=== PATIENT | female | born 1990 | race African-American/Black ===

== ENCOUNTER 2019-07-25 21:16 | Emergency (ER) | payer OTHER ==
[~2019-07-25] VITALS: Ht 172.7 cm; Wt 103.4 kg
--- NOTE | 2019-07-25 21:25 | NUR ---
ED Nurse Note: PT WALKED IN TO ED C/O HEMATEMESIS X3DAYS ACCOMPANIED BY ABD PAIN 10/10. PT STATEKS 8 WK , DENIES VAGINAL BLEEDING. PT STATES 2 PARA 0. VSS, NAD, AAOX4, AMBULATORY, ERMD AT BEDSIDE.
--- NOTE | 2019-07-25 21:30 | NUR ---
ED Nurse Note: BLOOD COLLECTED AND SENT TO LAB. UNABLE TO COLLECT URINE AT THIS TIME. WILL ATTEMPT AGAIN LATER
[2019-07-25 21:52] VITALS: BP 141/93
--- NOTE | 2019-07-25 21:52 | Emergency Room Report ---
History of Present Illness General Chief Complaint: Nausea, Vomiting, and Diarrhea Source: Patient (Gerard Olsen M.D.) Present Illness HPI Disclaimer: Please note that this report is being documented using [employer] technology. This can lead to erroneous entry secondary to incorrect interpretation by the dictating instrument. HPI: 29-year-old female approximately 8 weeks presents with nausea and vomiting. She states she has had nausea and vomiting for the past week, and over the past 3 days has had some blood streaks in her emesis. Unable to tolerate p.o. She denies any fevers. Does report diffuse abdominal pain. Also reports diarrhea. No urinary complaints. She denies a history of hyperemesis gravidarum. Pain is currently 10 out of 10 throughout her abdomen worse with vomiting. PMH: Patient denies any past medical history PSH: Reviewed Social Hx: She denies smoking drinking or illicit drug use (Gerard Olsen M.D.) Allergies: Coded Allergies: No Known Allergies (Unverified , 07/25/19) COVID-19 Screening Contact w/high risk pt: No Recent Travel to affected area: No Experienced COVID-19 symptoms?: No COVID-19 Testing performed DIRECTOR OF MEDICARE: No (Gerard Olsen M.D.) Patient History Now: Yes Reviewed Nursing Documentation: PMH: Agreed; PSxH: Agreed (Gerard Olsen M.D.) Nursing Documentation-PMH Past Medical History: No Stated History (Gerard Olsen M.D.) Review of Systems All Other Systems: negative except mentioned in HPI (Gerard Olsen M.D.) Physical Exam Vital Signs Date Time Temp Pulse Resp B/P (MAP) Pulse Ox O2 Delivery O2 Flow Rate FiO2 07/25/19 21:20 98.6 119 20 121/85 (97) 100 Room Air Sp02 EP Interpretation: reviewed, normal General Appearance: other - Patient appears uncomfortable, vomiting Head: normocephalic, atraumatic Eyes: bilateral eye PERRL, bilateral eye EOMI ENT: hearing grossly normal, moist mucus membranes Neck: full range of motion, supple Respiratory: lungs clear, normal breath sounds, no rhonchi, no respiratory distress, no retraction, no wheezing Cardiovascular #1: normal peripheral pulses, no murmur, tachycardia Gastrointestinal: soft, non-distended, no guarding, other - Epigastric tenderness noted Neurologic: alert, oriented x3, no focal defects Skin: normal color, warm/dry (Gerard Olsen M.D.) Medical Decision Making Diagnostic Impression: Primary Impression: Vomiting affecting ER Course MDM: Differential diagnosis included but not limited to hyperemesis gravidarum, gastroenteritis, gastritis, Jody-Broussard tear, dehydration Clinical course-IV cardiac monitoring pulse oximetry antiemetics given. IV fluids given, laboratory studies were sent ultrasound ordered. Plan-patient signed out to oncoming physician to follow-up on laboratory studies , ultrasound result and final disposition. (Gerard Olsen M.D.) ER Course Patient signed out to me from previous provider pending labs and imaging results. Briefly, this a 29-year-old female at 8 weeks gestation presenting for intractable vomiting. Labs have returned within normal limits aside from slight hypokalemia which was repleted with IV and oral potassium. Patient received IV fluids and antiemetics. Ultrasound of the abdomen as well as a pelvic ultrasound was performed showing no acute findings. Single intrauterine without other significant findings. Patient symptoms are now controlled. Will discharge with Zofran and follow-up with [employer] and PMD soon as possible. Discussed reasons to return to the emergency department. She understands and agrees with this treatment plan. Laboratory Tests Test 07/25/19 21:40 07/26/19 00:23 White Blood Count 11.8 K/UL (4.8-10.8) H Red Blood Count 4.88 M/UL (4.20-5.40) Hemoglobin 13.7 G/DL (12.0-16.0) Hematocrit 43.2 % (37.0-47.0) Mean Corpuscular Volume 89 FL (80-99) Mean Corpuscular Hemoglobin 28.1 PG (27.0-31.0) Mean Corpuscular Hemoglobin Concent 31.7 G/DL (32.0-36.0) L Red Cell Distribution Width 12.8 % (11.6-14.8) Platelet Count 406 K/UL (150-450) Mean Platelet Volume 5.8 FL (6.5-10.1) L Neutrophils (%) (Auto) 74.0 % (45.0-75.0) Lymphocytes (%) (Auto) 19.4 % (20.0-45.0) L Monocytes (%) (Auto) 5.4 % (1.0-10.0) Eosinophils (%) (Auto) 0.1 % (0.0-3.0) Basophils (%) (Auto) 1.1 % (0.0-2.0) Prothrombin Time 11.5 SEC (9.30-11.50) Prothrombin Time INR 1.0 (0.9-1.1) Activated Partial Thromboplast Time 25 SEC (23-33) Sodium Level 138 MMOL/L (136-145) Potassium Level 3.1 MMOL/L (3.5-5.1) L Chloride Level 100 MMOL/L (98-107) Carbon Dioxide Level 22 MMOL/L (21-32) Anion Gap 16 mmol/L (5-15) H Blood Urea Nitrogen 12 mg/dL (7-18) Creatinine 1.1 MG/DL (0.55-1.30) Estimated Glomerular Filtration Rate > 60 mL/min (>60) Glucose Level 124 MG/DL (74-106) H Calcium Level 9.8 MG/DL (8.5-10.1) Total Bilirubin 0.9 MG/DL (0.2-1.0) Aspartate Amino Transferase (AST) 19 U/L (15-37) Alanine Aminotransferase (ALT) 24 U/L (12-78) Alkaline Phosphatase 63 U/L (46-116) Total Protein 8.8 G/DL (6.4-8.2) H Albumin 4.3 G/DL (3.4-5.0) Globulin 4.5 g/dL Albumin/Globulin Ratio 1.0 (1.0-2.7) Lipase 74 U/L (73-393) Human Chorionic Gonadotropin, Quant 137636 mIU/mL (1-6) H Urine Color Yellow Urine Appearance Slightly cloudy Urine pH 6 (4.5-8.0) Urine Specific [place] 1.025 (1.005-1.035) Urine Protein 3+ (NEGATIVE) H Urine Glucose (UA) Negative (NEGATIVE) Urine Ketones 4+ (NEGATIVE) H Urine Blood 4+ (NEGATIVE) H Urine Nitrite Negative (NEGATIVE) Urine Bilirubin Negative (NEGATIVE) Urine Urobilinogen 1 MG/DL (0.0-1.0) H Urine Leukocyte Esterase 1+ (NEGATIVE) H Urine RBC 10-15 /HPF (0 - 2) H Urine WBC 2-4 /HPF (0 - 2) Urine Squamous Epithelial Cells Moderate /LPF (NONE/OCC) H Urine Bacteria Few /HPF (NONE) Urine Mucus Few /LPF (NONE/OCC) H (Jak Beltrán MD) CT/MRI/US Diagnostic Results CT/MRI/US Diagnostic Results : Impression Final Report EXAM: US First Trimester , Transabdominal and Transvaginal CLINICAL HISTORY: PAIN TECHNIQUE: Real-time transabdominal and transvaginal obstetrical ultrasound of the maternal pelvis and a first trimester with image documentation. Transvaginal imaging was used for better evaluation of the fetus and adnexa. COMPARISON: No relevant prior studies available. FINDINGS: Gestation: Single live IUP approximately 8 weeks 5 days. heart rate 178 bpm. [place]-rump length 2.1 cm. Placenta/amniotic fluid: Cannot be adequately evaluated due to the early gestational age. Uterus/cervix: Unremarkable. No myometrial mass. Ovaries: Unremarkable. No mass. Free fluid: No free fluid. IMPRESSION: Single live IUP approximately 8 weeks 5 days. Radiologist: Edgar Chase M.D. Electronically Signed: 07/26/19 00:53 Study ready at 00:22 and initial results transmitted at 00:53 Final Report EXAM: US Abdomen Complete CLINICAL HISTORY: PAIN TECHNIQUE: Real-time ultrasound of the abdomen with image documentation. COMPARISON: No relevant prior studies available. FINDINGS: Liver: Unremarkable. Gallbladder: No cholelithiasis or evidence of acute cholecystitis. Common bile duct: CBD 3 mm. Pancreas: Unremarkable as visualized. Kidneys: No hydronephrosis. Spleen: Spleen not visualized. Aorta: Unremarkable as visualized. Inferior vena cava: Unremarkable as visualized. IMPRESSION: No cholelithiasis or evidence of acute cholecystitis. Radiologist: Edgar Chase M.D. Electronically Signed: 07/26/19 00:55 Study ready at 00:38 and initial results transmitted at 00:55 (Jak Beltrán MD) Last Vital Signs Date Time Temp Pulse Resp B/P (MAP) Pulse Ox O2 Delivery O2 Flow Rate FiO2 07/25/19 21:20 98.6 119 20 121/85 (97) 100 Room Air (Gerard Olsen M.D.) Disposition: HOME, SELF-CARE Condition: Stable Scripts Ondansetron Odt* (ZOFRAN ODT*) 4 Mg Tab.rapdis 4 MG BC EVERY 6 HOURS PRN for Nausea & Vomiting, #10 TAB 0 Refills Prov: Jak Beltrán MD 07/26/19 Referrals: Claudia BROWN,REFERRING (PCP) Gerard Olsen M.D. Jul 25, 2019 21:52 Jak Beltrán MD Jul 26, 2019 00:58
[2019-07-25 22:03] LABS: BASOPHILS % (AUTO) 1.1 % (0.0-2.0); EOSINOPHILS % (AUTO) 0.1 % (0.0-3.0); HEMATOCRIT 43.2 % (37.0-47.0); HEMOGLOBIN 13.7 G/DL (12.0-16.0); LYMPHOCYTES % (AUTO) 19.4 % (20.0-45.0); MEAN CORPUSCULAR VOLUME 89 FL (80-99); MONOCYTES % (AUTO) 5.4 % (1.0-10.0); PLATELET COUNT 406 K/UL (150-450); RED BLOOD COUNT 4.88 M/UL (4.20-5.40); RED CELL DISTRIBUTION WIDTH 12.8 % (11.6-14.8); WHITE BLOOD COUNT 11.8 K/UL (4.8-10.8)
[2019-07-25 22:19] LABS: ANION GAP 16 mmol/L (5-15); BLOOD UREA NITROGEN 12 mg/dL (7-18); CALCIUM 9.8 MG/DL (8.5-10.1); CARBON DIOXIDE 22 MMOL/L (21-32); CHLORIDE 100 MMOL/L (98-107); CREATININE 1.1 MG/DL (0.55-1.30); POTASSIUM 3.1 MMOL/L (3.5-5.1); SODIUM 138 MMOL/L (136-145)
[2019-07-25 22:24] LABS: ALANINE AMINOTRANSFERASE 24 U/L (12-78); ALBUMIN 4.3 G/DL (3.4-5.0); ALKALINE PHOSPHATASE 63 U/L (46-116); ASPARTATE AMINO TRANSFERASE 19 U/L (15-37); BILIRUBIN,TOTAL 0.9 MG/DL (0.2-1.0)
--- NOTE | 2019-07-25 22:40 | NUR ---
ED Nurse Note: pt refused po K dur, stating " I cant tolerate anything by mouth." ERMD made aware.
--- NOTE | 2019-07-25 23:27 | NUR ---
ED Nurse Note: us at bedside
--- NOTE | 2019-07-26 00:20 | NUR ---
ED Nurse Note: urine collected and sent to lab
[2019-07-26] MEDS ORDERED: ONDANSETRON ODT4 MG BC (00:22)
--- NOTE | 2019-07-26 00:39 | NUR ---
ED Nurse Note: pt able to tolerate po liquid
[2019-07-26 00:40] VITALS: BP 125/72
--- NOTE | 2019-07-26 00:54 | Diagnostic Imaging Report ---
EXAM: US First Trimester , Transabdominal and Transvaginal CLINICAL HISTORY: PAIN TECHNIQUE: Real-time transabdominal and transvaginal obstetrical ultrasound of the maternal pelvis and a first trimester with image documentation. Transvaginal imaging was used for better evaluation of the fetus and adnexa. COMPARISON: No relevant prior studies available. FINDINGS: Gestation: Single live IUP approximately 8 weeks 5 days. heart rate 178 bpm. [place]-rump length 2.1 cm. Placenta/amniotic fluid: Cannot be adequately evaluated due to the early gestational age. Uterus/cervix: Unremarkable. No myometrial mass. Ovaries: Unremarkable. No mass. Free fluid: No free fluid. IMPRESSION: Single live IUP approximately 8 weeks 5 days.
--- NOTE | 2019-07-26 00:56 | Diagnostic Imaging Report ---
EXAM: US Abdomen Complete CLINICAL HISTORY: PAIN TECHNIQUE: Real-time ultrasound of the abdomen with image documentation. COMPARISON: No relevant prior studies available. FINDINGS: Liver: Unremarkable. Gallbladder: No cholelithiasis or evidence of acute cholecystitis. Common bile duct: CBD 3 mm. Pancreas: Unremarkable as visualized. Kidneys: No hydronephrosis. Spleen: Spleen not visualized. Aorta: Unremarkable as visualized. Inferior vena cava: Unremarkable as visualized. IMPRESSION: No cholelithiasis or evidence of acute cholecystitis.
[2019-07-26 01:34] VITALS: BP 133/71
[2019-07-26 01:35] VITALS: BP 133/71
--- NOTE | 2019-07-26 01:35 | NUR ---
ER DISCHARGE NOTE: Patient is cleared to be discharged per ERMD, pt is aox4, on room air, with stable vital signs. pt was given dc and prescription instructions, pt was able to verbalize understanding, pt id band and iv site removed without complications. pt is able to ambulate with steady gait. pt took all belongings.
[2019-07-26 01:36] LABS: APPEARANCE,URINE SLIGHTLY CLOUDY; BILIRUBIN, URINE NEGATIVE (NEGATIVE); GLUCOSE, URINE (UA) NEGATIVE (NEGATIVE); KETONES,URINE 4+ (NEGATIVE); LEUKOCYTE ESTERASE ,URINE 1+ (NEGATIVE); NITRITE,URINE NEGATIVE (NEGATIVE); PH,URINE 6 (4.5-8.0); PROTEIN,URINE 3+ (NEGATIVE); UROBILINOGEN,URINE 1 MG/DL (0.0-1.0)
[2019-07-26 01:58] LABS: COLOR,URINE YELLOW
== END 2019-07-26 01:35 | disposition home or self-care (01) ==
LOC: EMR 21:44
DX: O21.9 Vomiting of pregnancy, unspecified (principal); R19.7 Diarrhea, unspecified; E87.6 Hypokalemia; Z3A.08 8 weeks gestation of pregnancy
CPT/HCPCS: 36415; 76700; 76817; 80053; 81003; 83690; 84702; 85025; 85610; 85730; 86850; 86900; 86901; 96361; 96365; 96375; 96376; J2405; J3480; J7030; J7040; Z7502; 99284; J8499